=== PATIENT | female | born 1940 ===

== ENCOUNTER 2021-02-22 07:26 | Outpatient (CLI) | payer OTHER ==
[~2021-02-22 07:26] MED LIST: AYR SALINE NA14.1 GM NASAL; CEFTIN500 MG PO; FLONASE16 G1 NS; ZYRTEC10 MG PO
== END 2021-02-22 07:37 | disposition home or self-care (01) ==
LOC: RX STUDY 07:26
PROVIDERS: ATTEND Internal Medicine
DX: R19.5 Other fecal abnormalities (principal); K63.4 Enteroptosis